=== PATIENT | female | born 1990 | race Caucasian/White ===

== ENCOUNTER 2016-11-22 20:30 | Emergency (ER) | payer BC, OTHER ==
[2016-11-22 20:56] VITALS: RESP 16
[2016-11-22] MEDS ORDERED: ACETAMINOPHEN TAB 500 MG TAB PO STA (22:19)
--- NOTE | 2016-11-22 22:23 | ED ---
General Adult HPI - General Chief complaint: Headache Stated complaint: Sent by ME headache/fever Time Seen by Provider: 11/22/16 22:03 Source: patient, RN notes reviewed Mode of arrival: ambulatory Limitations: no limitations - History of Present Illness Initial comments: Patient is a pleasant 25-year-old female presenting to the emergency department with fever and headache. Symptoms have been waxing and waning over the past 4 days. Symptoms have been worse yesterday and today. Discomfort is moderate to severe. Patient has not tried taking any medication for this. Patient has some mild stiffness in her neck when she extends her head fully forward. No upper respiratory symptoms. No abdominal pain. No dysuria. No rash. Headache is bilateral frontal region. - Related Data Home Medications Medication Instructions Recorded Confirmed Albuterol Inhaler [Ventolin Hfa 1 - 2 puff INHALATION RT-Q6H PRN 11/22/16 Inhaler] L.acidoph,Paracasei, B.lactis 1 cap PO DAILY 11/22/16 11/22/16 [Probiotic] Magnesium Gluconate [Magonate] 500 mg PO DAILY 11/22/16 11/22/16 Multivitamins, Thera [Multivitamin 1 tab PO DAILY 11/22/16 11/22/16 (formulary)] Allergies Allergy/AdvReac Type Severity Reaction Status Date / Time aspirin Allergy Wheezing Verified 11/22/16 22:27 ibuprofen Allergy Wheezing Verified 11/22/16 22:27 Review of Systems ROS Statement: Those systems with pertinent positive or pertinent negative responses have been documented in the HPI. ROS Other: All systems not noted in ROS Statement are negative. Constitutional: Reports: fever, chills Eyes: Denies: eye pain ENT: Denies: ear pain Respiratory: Denies: cough, dyspnea Cardiovascular: Denies: chest pain Endocrine: Reports: fatigue Gastrointestinal: Denies: abdominal pain Genitourinary: Denies: dysuria Musculoskeletal: Denies: back pain Skin: Denies: rash Neurological: Reports: headache Past Medical History Past Medical History: Asthma Additional Past Medical History / Comment(s): IBS, PPD History of Any Multi-Drug Resistant Organisms: None Reported Additional Past Surgical History / Comment(s): wisdom teeth 2012 Past Anesthesia/Blood Transfusion Reactions: No Reported Reaction Past Psychological History: Depression Smoking Status: Never smoker Past Drug Use History: None Reported - Past Family History Mother Family Medical History: Cancer Additional Family Medical History / Comment(s): cervical General Exam Limitations: no limitations General appearance: alert, in no apparent distress, other (Kernig's and Brudzinski sign negative.) Head exam: Present: atraumatic Eye exam: Present: normal appearance, PERRL, EOMI. Absent: nystagmus ENT exam: Present: normal oropharynx Neck exam: Present: other (Mild discomfort with full neck flexion) Respiratory exam: Present: normal lung sounds bilaterally Cardiovascular Exam: Present: regular rate, normal rhythm GI/Abdominal exam: Present: soft. Absent: tenderness Extremities exam: Present: normal inspection. Absent: pedal edema, calf tenderness Neurological exam: Present: alert, oriented X3, CN II-XII intact. Absent: motor sensory deficit Expanded Patient oriented to: Present: person, place, time Speech: Present: fluid speech Cranial nerves: Facial Sensation: Normal Sensory exam: Upper Extremity Light Touch: Normal, Lower Extremity Light Touch: Normal Motor strength exam: RUE: 5, LUE: 5, RLE: 5, LLE: 5 Eye Response: (4) open spontaneously Motor Response: (6) obeys commands Verbal Response: (5) oriented Psychiatric exam: Present: normal affect, normal mood Skin exam: Present: normal color Course Vital Signs 11/22/16 20:53 Temperature 99.2 F Pulse Rate 81 Respiratory 16 Rate Blood Pressure 124/74 O2 Sat by Pulse 100 Oximetry - Reevaluation(s) Reevaluation #1: 11/22/16 23:31 Patient reevaluated and resting comfortably in bed. Patient has had some improvement with Tylenol. Patient is updated on results. Patient is updated on concern for possible meningitis. Patient is overall felt to be low risk secondary to mild symptoms and normal blood work. Patient is made aware that meningitis cannot be completely ruled out without performing lumbar puncture and therefore is recommended to consider exam. Patient is explained risks and benefits of lumbar puncture. Patient is also explained how the procedure is done. Patient is considering whether or not to have procedure done at this time. 11/22/16 23:38 Patient again reexamined and further updated. Patient states she does feel better and does not want to have procedure done. Patient states she wants to be discharged and does not want to wait in the emergency department. Patient does move her neck easily from [id number] while talking with male accompanying her. Patient is again made aware that meningitis cannot be completely ruled out without lumbar puncture and early detection is important. Patient is advised that if the decision was left to me then recommendation would be to have procedure done. Patient does demonstrate medical decision making. Patient is agreeable to return if symptoms worsen. Medical Decision Making - Lab Data Result diagrams: 11/22/16 22:39 11/22/16 22:39 Lab Results 11/22/16 11/22/16 11/22/16 Range/Units 22:32 22:39 22:39 WBC 5.7 (3.8-10.6) k/uL RBC 4.63 (3.80-5.40) m/uL Hgb 13.5 (11.4-16.0) gm/dL Hct 38.8 (34.0-46.0) % MCV 83.8 (80.0-100.0) fL MCH 29.2 (25.0-35.0) pg MCHC 34.8 (31.0-37.0) g/dL RDW 13.8 (11.5-15.5) % Plt Count 187 (150-450) k/uL Neutrophils % 47 % Lymphocytes % 37 % Monocytes % 9 % Eosinophils % 3 % Basophils % 1 % Neutrophils # 2.7 (1.3-7.7) k/uL Lymphocytes # 2.1 (1.0-4.8) k/uL Monocytes # 0.5 (0-1.0) k/uL Eosinophils # 0.2 (0-0.7) k/uL Basophils # 0.0 (0-0.2) k/uL PT (9.0-12.0) sec INR (<1.2) APTT (22.0-30.0) sec Sodium 139 (137-145) mmol/L Potassium 4.0 (3.5-5.1) mmol/L Chloride 106 (98-107) mmol/L Carbon Dioxide 22 (22-30) mmol/L Anion Gap 11 mmol/L BUN 10 (7-17) mg/dL Creatinine 0.70 (0.52-1.04) mg/dL Est GFR (MDRD) Af Amer >60 (>60 ml/min/1.73 sqM) Est GFR (MDRD) Non-Af >60 (>60 ml/min/1.73 sqM) Glucose 87 (74-99) mg/dL Plasma Lactic Acid Jose (0.7-2.0) mmol/L Calcium 9.3 (8.4-10.2) mg/dL Total Bilirubin 0.3 (0.2-1.3) mg/dL AST 19 (14-36) U/L ALT 32 (9-52) U/L Alkaline Phosphatase 72 (38-126) U/L Total Protein 7.9 (6.3-8.2) g/dL Albumin 4.7 (3.5-5.0) g/dL Urine Color Colorless Urine Appearance Clear (Clear) Urine pH 7.0 (5.0-8.0) Ur Specific [place] 1.002 (1.001-1.035) Urine Protein Negative (Negative) Urine Glucose (UA) Negative (Negative) Urine Ketones Negative (Negative) Urine Blood Small H (Negative) Urine Nitrite Negative (Negative) Urine Bilirubin Negative (Negative) Urine Urobilinogen <2.0 (<2.0) mg/dL Ur Leukocyte Esterase Negative (Negative) Urine RBC 2 (0-5) /hpf Urine WBC <1 (0-5) /hpf Ur Squamous Epith Cells <1 (0-4) /hpf Urine Bacteria Rare H (None) /hpf 11/22/16 11/22/16 Range/Units 22:39 22:39 WBC (3.8-10.6) k/uL RBC (3.80-5.40) m/uL Hgb (11.4-16.0) gm/dL Hct (34.0-46.0) % MCV (80.0-100.0) fL MCH (25.0-35.0) pg MCHC (31.0-37.0) g/dL RDW (11.5-15.5) % Plt Count (150-450) k/uL Neutrophils % % Lymphocytes % % Monocytes % % Eosinophils % % Basophils % % Neutrophils # (1.3-7.7) k/uL Lymphocytes # (1.0-4.8) k/uL Monocytes # (0-1.0) k/uL Eosinophils # (0-0.7) k/uL Basophils # (0-0.2) k/uL PT 10.6 (9.0-12.0) sec INR 1.0 (<1.2) APTT 28.6 (22.0-30.0) sec Sodium (137-145) mmol/L Potassium (3.5-5.1) mmol/L Chloride (98-107) mmol/L Carbon Dioxide (22-30) mmol/L Anion Gap mmol/L BUN (7-17) mg/dL Creatinine (0.52-1.04) mg/dL Est GFR (MDRD) Af Amer (>60 ml/min/1.73 sqM) Est GFR (MDRD) Non-Af (>60 ml/min/1.73 sqM) Glucose (74-99) mg/dL Plasma Lactic Acid Jose 0.7 (0.7-2.0) mmol/L Calcium (8.4-10.2) mg/dL Total Bilirubin (0.2-1.3) mg/dL AST (14-36) U/L ALT (9-52) U/L Alkaline Phosphatase (38-126) U/L Total Protein (6.3-8.2) g/dL Albumin (3.5-5.0) g/dL Urine Color Urine Appearance (Clear) Urine pH (5.0-8.0) Ur Specific [place] (1.001-1.035) Urine Protein (Negative) Urine Glucose (UA) (Negative) Urine Ketones (Negative) Urine Blood (Negative) Urine Nitrite (Negative) Urine Bilirubin (Negative) Urine Urobilinogen (<2.0) mg/dL Ur Leukocyte Esterase (Negative) Urine RBC (0-5) /hpf Urine WBC (0-5) /hpf Ur Squamous Epith Cells (0-4) /hpf Urine Bacteria (None) /hpf - Radiology Data Radiology results: image reviewed (Chest x-ray shows no acute process. Computed tomography scan of the brain shows no acute process) Disposition Clinical Impression: Fever, Headache Disposition: HOME SELF-CARE Condition: Stable Instructions: Fever in Adults (ED), Acute Headache (ED) Additional Instructions: Please follow-up with primary care physician tomorrow. [id number] Tylenol as needed. Return for increased neck pain, increased headache, neurological problems, worsening illness or any other concerns or desire to have lumbar puncture procedure done. Referrals: Elio Maldonado III, MD [Primary Care Provider] - 1-2 days Time of Disposition: 23:42
[2016-11-22] MEDS: SODIUM CHLORIDE 0.9% 500 ML IV SCH (22:35)
[2016-11-22 22:56] LABS: Basophils % (A) 1 %; CH 29.5; CHCM 35.3; Eosinophils # (A) 0.2 k/uL (0-0.7); Eosinophils % (A) 3 %; HCT 38.8 % (34.0-46.0); HDW 2.51; HGB 13.5 gm/dL (11.4-16.0); Luc # (Auto) 0.19; Luc % (Auto) 3; Lymphocytes # (A) 2.1 k/uL (1.0-4.8); Lymphocytes % (A) 37 %; MCH 29.2 pg (25.0-35.0); MCHC 34.8 g/dL (31.0-37.0); MCV 83.8 fL (80.0-100.0); Monocytes # (A) 0.5 k/uL (0-1.0); Monocytes % (A) 9 %; Neutrophils # (A) 2.7 k/uL (1.3-7.7); Neutrophils % (A) 47 %; RBC 4.63 m/uL (3.80-5.40); RDW 13.8 % (11.5-15.5); WBC 5.7 k/uL (3.8-10.6); WBC (Perox) 5.97
[2016-11-22 23:05] LABS: ALT 32 U/L (9-52); AST 19 U/L (14-36); Alkaline Phosphatase 72 U/L (38-126); Anion Gap 11 mmol/L; Blood Urea Nitrogen 10 mg/dL (7-17); Calcium 9.3 mg/dL (8.4-10.2); Carbon Dioxide 22 mmol/L (22-30); Chloride 106 mmol/L (98-107); Glucose 87 mg/dL (74-99); Non-African American GFR(MDRD) >60 (>60 ml/min/1.73 sqM); Sodium 139 mmol/L (137-145); Total Bilirubin 0.3 mg/dL (0.2-1.3); Total Protein 7.9 g/dL (6.3-8.2)
[2016-11-22 23:07] LABS: Appearance,Urine Clear (Clear); Bacteria,Urine Rare /hpf; Bilirubin,Urine Negative (Negative); Glucose,Urine (UA) Negative (Negative); Ketones,Urine Negative (Negative); Leukocyte Esterase,Urine Negative (Negative); Nitrite,Urine Negative (Negative); Particle Count 441; Protein,Urine Negative (Negative); RBC,Urine 2 /hpf (0-5); Specific Gravity,Urine 1.002 (1.001-1.035); Squamous Epithelial Cell,Urine <1 /hpf (0-4); UA Billing (MACRO vs. MICRO) MICRO; Urobilinogen,Urine <2.0 mg/dL (<2.0); WBC,Urine <1 /hpf (0-5)
[2016-11-22 23:09] LABS: Partial Thromboplastin Time 28.6 sec (22.0-30.0); Prothrombin Time 10.6 sec (9.0-12.0)
--- NOTE | 2016-11-22 23:25 | CT ---
EXAM: CT Head Without Intravenous Contrast CLINICAL HISTORY: Reason: Pain. STEVEN and fever x3 days. TECHNIQUE: Axial computed tomography images of the head/brain without intravenous contrast. CTDI is 57.4 mGy and DLP is 923.0 mGy-cm. This CT exam was performed using one or more of the following dose reduction techniques: automated exposure control, adjustment of the mA and/or kV according to patient size, and/or use of iterative reconstruction technique. COMPARISON: No relevant prior studies available. FINDINGS: Brain: Normal delcid-white differentiation. No evidence of acute cerebral infarction or intracranial hemorrhage. No abnormal extra-axial collections. No edema. Ventricles: Ventricles are of normal size and configuration. No abnormal mass effect or midline shift. Bones/joints: No evidence of skull fracture. Soft tissues: Unremarkable. Sinuses: Imaged paranasal and mastoid sinuses are clear. Mastoid air cells: See above. IMPRESSION: No evidence of acute intracranial abnormality.
--- NOTE | 2016-11-22 23:29 | XR ---
EXAM: XR Chest, 2 Views CLINICAL HISTORY: Reason: Fever TECHNIQUE: Frontal and lateral views of the chest. COMPARISON: No relevant prior studies available. FINDINGS: Lungs: Lungs are clear Pleural space: No evidence of pleural effusion or pneumothorax Heart: Heart size is within normal limits Mediastinum: Unremarkable. Bones/joints: Imaged bony thorax is unremarkable IMPRESSION: No evidence of active chest disease.
[2016-11-22 23:47] VITALS: BP 130/74; PULSE 88; TEMP 98.1
== END 2016-11-23 00:05 | disposition home or self-care (01) ==
LOC: EC 20:30
DX: R51 Headache (principal); R50.9 Fever, unspecified; M43.6 Torticollis; Z79.899 Other long term (current) drug therapy; Z88.6 Allergy status to analgesic agent
CPT/HCPCS: 36415; 70450; 71020; 80053; 81001; 83605; 85025; 85610; 85730; 87040; 87086; 96360; 99284

== ENCOUNTER 2017-09-12 17:30 | Outpatient (CLI) | payer OTHER ==
[2017-09-12 20:07] VITALS: BP 118/63; PULSE 94; RESP 14
--- NOTE | 2017-09-18 08:43 | P.MSEPDOC ---
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, planning a home Review of Systems - Review of Systems Constitutional: No problems Breast: No problems ENT: No problems Cardiovascular: No problems Respiratory: No problems Gastrointestinal: No problems Genitourinary: No problems Musculoskeletal: No problems Neurological: No problems Skin: No problems Vital Signs - Pulse Right Brachial Pulse Rate: 94 Pulse Assessment Method: Automatic Cuff - Respirations Respiratory Rate: 14 Oxygen Delivery Method: Room Air - Blood Pressure Right Arm Blood Pressure: 118/63 Blood Pressure Mean: 81 Blood Pressure Source: Automatic Cuff Medical Screen Scoring (Pre) - Cervical Exam Dilation: Exam Deferred - Uterine Contractions Frequency: N/A Duration: N/A Intensity: N/A - Maternal Vital Signs Maternal Temperature: N/A Maternal Blood Pressure: N/A Signs of Preeclampsia: N/A Maternal Respirations: N/A - Pain Assessment Pain Scale Used: Numeric (1 - 10) Pain Intensity: 0 - Maternal Trauma Maternal Trauma: N/A - Assessment Baseline FHR: 135 Heart Rate - NICHD Category: Category I (Normal) = 0 NST: Reactive Position: N/A - Total Score Total Score (Pre): 0 - Level of Risk Level of Risk: N/A Physician Notification (Pre) - Physician Notified Physician Notified Date: 09/12/17 Physician Notified Time: 18:40 Physician/Practitioner Notifed:: adele Spoke With: adele New Order Received: Yes - Notification Comment Comment: reported pt visit as documented in obix. Disposition - Disposition OB Disposition: Discharge to home Discharge Date: 09/12/17 Discharge Time: 19:10 I agree with the RN Medical Screening Exam: Yes Risk & Benefit of care provided described in d/c instruction: Yes Diagnosis: DECREASED MOVEMENTS, THIRD TRIMESTER, FETUS 1
== END 2017-09-12 19:10 | disposition home or self-care (01) ==
LOC: FBPOP 17:30
PROVIDERS: ATTEND Obstetrics & Gynecology Obstetrics
DX: O36.8130 Decreased fetal movements, third trimester, not applicable or unspecified (principal); Z3A.36 36 weeks gestation of pregnancy
CPT/HCPCS: 59025; 99213